=== PATIENT | female | born 1965 | race Two or more races ===

== ENCOUNTER 2016-09-22 14:52 | Emergency (ER) | payer MEDICAID, OTHER ==
[2016-09-22 15:07] VITALS: BP 125/86
[2016-09-22] MEDS ORDERED: LIDOCAINE 1% HCL (LOCAL ANESTH.) INJ 20ML MDV IN ONE (17:00)
[2016-09-22] MEDS ORDERED: cefTRIAXone SOD 1,000 MG VL IM ONE (17:15)
[2016-09-22] MEDS ORDERED: IBUPROFEN 800 MG TAB PO ONE (17:15)
== END 2016-09-22 17:51 | disposition home or self-care (01) ==
LOC: ER 15:16
DX: L02.416 Cutaneous abscess of left lower limb (principal)
CPT/HCPCS: 10060; 96372; 99283; J0696; J2001

== ENCOUNTER 2016-09-25 08:04 | Emergency (ER) | payer MEDICAID ==
[2016-09-25 08:15] VITALS: BP 127/82
== END 2016-09-25 08:35 | disposition home or self-care (01) ==
LOC: ER 08:04
DX: L02.416 Cutaneous abscess of left lower limb (principal); E11.9 Type 2 diabetes mellitus without complications